=== PATIENT | female | born 1985 | race Caucasian/White ===

== ENCOUNTER → 2017-06-23 | Outpatient (CLI) | payer BC ==
[~2017-06-23] MED LIST: DFL150 PO; IBUP-1050 PO; NYST100098 TD; PRENTAB26 PO; [UNRECOGNIZED DRUG - REMARK]
[2017-06-23 10:52] LABS: BASO % 0.2 %; BASO ABS # 0.02 K/uL (0-0.2); COMPLETE YES; EOS % 2.2 %; HEMATOCRIT 42.5 % (37-47); IG% 0.1 %; LYMPH % 23.7 %; LYMPH ABS # 2.33 K/uL (1.2-3.4); MEAN CELL VOLUME 95.7 fL (80-100); MEAN CORPUSCULAR HEMOGLOBIN 32.4 pg (25-34); MEAN CORPUSCULAR HGB CONC 33.9 g/dl (32-36); MEAN PLATELET VOLUME 10.8 fL (7.4-10.4); MONO % 5.6 %; NEUT % 68.2 %; PLATELET COUNT 257 K/uL (130-400); RED BLOOD COUNT 4.44 M/uL (4.2-5.4); WHITE BLOOD COUNT 9.84 K/uL (4.8-10.8)
[2017-06-23 11:24] LABS: BLOOD UREA NITROGEN 15 mg/dl (7-18); BUN/CREATININE RATIO 15.9 (10-20); CALCIUM 9.6 mg/dl (8.5-10.1); CARBON DIOXIDE 30 mmol/L (21-32); CHLORIDE 104 mmol/L (98-107); CHOLESTEROL 184 mg/dl (0-200); CREATININE 0.95 mg/dl (0.60-1.20); GLUCOSE 93 mg/dl (70-99); POTASSIUM 4.4 mmol/L (3.5-5.1); SODIUM 139 mmol/L (136-145)
[2017-06-23 11:33] LABS: ALB/GLOB RATIO 1.1 (0.9-2); ALKALINE PHOSPHATASE 61 U/L (45-117); ALT/SGPT 13 U/L (12-78); AST/SGOT 10 U/L (15-37); CHOLESTEROL/HDL RATIO 3.1; HDL CHOLESTEROL 60 mg/dl; LDL CHOLESTEROL CALCULATED 105 mg/dl; THYROID STIMULATING HORMONE 0.913 uIu/ml (0.300-4.500); TRIGLYCERIDES 95 mg/dl (0-150); VERY LOW DENSITY LIPOPROT CALC 19 mg/dl
== END | disposition home or self-care (01) ==
LOC: C.LABBC 08:59
PROVIDERS: ATTEND Physician Assistant Medical
DX: Z80.8 Family history of malignant neoplasm of other organs or systems (principal); E78.5 Hyperlipidemia, unspecified

== ENCOUNTER → 2017-10-31 | Outpatient (CLI) | payer BC | END | disposition home or self-care (01) | LOC: C.PAPS 13:51 | PROVIDERS: ATTEND Physician Assistant | DX: Z01.419 Encounter for gynecological examination (general) (routine) without abnormal findings (principal) ==

== ENCOUNTER → 2017-10-31 | Outpatient (CLI) | payer BC | END | disposition home or self-care (01) | LOC: C.LABSPEC 13:38 | PROVIDERS: ATTEND Physician Assistant | DX: N92.6 Irregular menstruation, unspecified (principal) ==

== ENCOUNTER 2021-08-08 12:40 | Inpatient (IN) ==
[2021-08-08] MEDS ORDERED: OXYTOCIN 30 UNITS/500 ML BAG IV PRN ×3 (13:32→18:27)
[2021-08-08] MEDS ORDERED: LACTATED RINGER'S 1,000 ML IV PRN (13:32)
--- NOTE | 2021-08-08 13:35 | History & Physical Report ---
Date of Service August 08, 2021 Assessment & Plan (1) with 36 completed weeks gestation: (2) PROM (premature rupture of membranes): Plan: fetus category one, gbs negative. Patient was tested 3 days ago for covid and negative, retesting today. Offered short expectant management vs starting pit now. Wants to expectantly manage for now. Told her likely no more than 6 hours. She is agreeable. epidural on demand. anticipate . History of Present Illness Chief Complaint: rom Primary Care Provider: Stew Hernandez MD Patient is a 35yowf at 36 6/7 weeks who presents to labor and delivery complaining of large gush of fluid at noon, clear. no bleeding, no contractions. +fm. Lost mucous plug yesterday. New FOB. Last delivery 10 years ago. and Delivery Plans Abnormal fluid & ventricles on brain on f/u anatomy *MFM consult. MRI Jun 15 (normal MRI of fetus) Vaping daily AMA Weekly NST's @ 36 weeks Thyroid nodule Cervical polyp x 2. Having bleeding in ASCUS, HPV negative pap-repeat 1 year OB Labs: Blood Type A Positive 01/21/21 Antibody Screen NEGATIVE 01/21/21 Hemoglobin 10.9 g/dL (12.0-16.0) L 06/11/21 Hematocrit 33.3 % (37-47) L 06/11/21 Mean Corpuscular Volume 95.7 fL (80-100) 06/23/17 Platelet Count 257 K/uL (130-400) 06/23/17 Rubella IgG AntibodyD Immune (Immune) 01/21/21 Rapid Plasma Reagin Nonreactive (Nonreactive) 01/21/21 Hepatitis B Surface Antigen Neg (Neg) 01/21/21 HIV (1&2) Ab and P24 Ag, 4th Gener Neg (Neg) 01/21/21 Glucose 1 Hour 50 gm Load 180 mg/dl (70-130) H 06/11/21 OB Optional Labs: Chlamydia trachomatis RNA NOT DETECTED (NOT DETECTED) 01/21/21 Neisseria gonorrhoeae RNA NOT DETECTED (NOT DETECTED) 01/21/21 Thyroid Stimulating Hormone (TSH) 0.913 uIu/ml (0.300-4.500) 06/23/17 Labs Reviewed: 01/19/2021 Hgb13.5 Hct40.1 MCV91.3 [id number] Allergies Allergy/AdvReac Type Severity Reaction Status Date / Time No Known Allergies Allergy Mild Verified 08/02/21 09:51 Home Medications Medication Instructions Recorded Confirmed Type prenat.vits,jennifer,mxi-ssuf-vepmg 1 tab PO DAILY 08/01/21 08/08/21 History Patient History Medical History History of chicken pox Low grade squamous intraepithelial lesion (LGSIL) Thyroid nodule Benign biopsy Surgical History History of colposcopy History of tonsillectomy Age 22 Family History Father Myocardial infarction Diabetes Brother Thyroid cancer Mother Parathyroid cancer Hypertension Colonic polyp Kidney failure Sister Thyroid cancer Denies family history of Ovarian cancer Prostate cancer Breast cancer Colorectal cancer Social History Smoking Status: Current every day smoker Tobacco Type: E-cigarettes / Vaping Age Started Using Tobacco: 16; packs per day: 0.5; Cigarettes Per Day: 4; Second Hand Exposure: No; Hx Alcohol Use: No Hx Substance Use: No Preferred Language: Egyptian Communication Ability: Effective Electronic Console Display Operator Required: No Beliefs That Will Affect Care: None marital status: marital status details: derian Shen, [phone] Current Living Situation: Family Current Living Situation Comment: lives with son, no pets current occupational status: employed current occupation: [employer]. Other Information That Helps Us Care for You: No Feels Safe at Home: Yes Safety Concerns: Feels Safe At This Time Childhood Exposure to Second-Hand Smoke: No caffeine: Yes Physical Activity Frequency: Does not Exercise Seatbelt Use: always Sunscreen Use: No Assistive Devices: None OB History Past Pregnancies Del. Date GA wks Lbr Lgth wt Sex Type del Anes Place Del Prov ? Comment 01/20/10 39 8 5-10 M Epid ural [facility] Dr. Pierce No oligohydramnios Physical Exam Constitutional: WD/WN, vitals as above Cardiovascular: Extremities: no calf tenderness and no edema Gastrointestinal (Abdomen): soft, gravid, nt Psychiatric: A+Ox3, euthymic affect Genitourinary: sse--+gross pooling sve--3-4/80/-2 EFM--130s with mod variability, accels to 150s, no decels toco--chari Results & Data ([facility]) Vital Signs (Past 12 Hours) Vital Signs Temp Pulse Resp BP 08/08/21 12:59 36.6 C 96 H 20 121/74 08/08/21 12:57 96 H 121/74 Coding Level of Care Code None Diagnoses with 36 completed weeks gestation Z3A.36 PROM (premature rupture of membranes) O42.90
[2021-08-08 14:04] LABS: Hematocrit (blood only) 37.8 % (37-47); Hemoglobin 12.9 g/dL (12.0-16.0); Mean Corpuscular Hemoglobin 30.6 pg (25-34); Mean Corpuscular Hgb Conc 34.1 g/dL (32-36); Mean Corpuscular Volume 89.8 fL (80-100); Mean Platelet Volume 10.6 fL (7.4-10.4); Platelet Count 218 K/uL (130-400); RDW Coefficient of Variation 12.5 % (11.5-14.5); RDW Standard Deviation 40.5 fL (36.4-46.3); Red Blood Count 4.21 M/uL (4.2-5.4); White Blood Count 10.72 K/uL (4.8-10.8)
[2021-08-08] MEDS ORDERED: ePHEDrine sulfate 50 MG/ML AMP ONE (17:42)
[2021-08-08] MEDS ORDERED: SODIUM CHLORIDE 0.9% INJ 10 ML VIAL ONE (17:42)
[2021-08-08] MEDS ORDERED: BUPIVACAINE 0.25% 30 ML VIAL ONE (17:42)
[2021-08-08] MEDS ORDERED: fentaNYL citrate 100 MCG/2 ML VIAL ONE (17:42)
[2021-08-08] MEDS ORDERED: fentaNYL 2MCG/ML ROPIVACAINE 1.25MG/ML 100 ML BAG EPI ONE (17:43)
[2021-08-08] MEDS ORDERED: LIDOCAINE 1% LOCAL 20 ML VIAL ONE (18:17)
[2021-08-08] MEDS ORDERED: ACETAMINOPHEN 325 MG TAB PO PRN (18:27)
[2021-08-08] MEDS ORDERED: oxyCODONE/ACETAMINOPHEN 5mg/325mg TAB PO PRN (18:27)
[2021-08-08] MEDS ORDERED: HYDROCORTISONE ACETATE 25 MG SUPP PR PRN (18:27)
[2021-08-08] MEDS ORDERED: DIPHTHERIA/TETANUS/PERTUSSIS 0.5 ML SYR/VIAL IM ONE (18:27)
[2021-08-08] MEDS ORDERED: BENZOCAINE 20% AER SPR 82.5 GM CAN EXT PRN (18:27)
[2021-08-08] MEDS ORDERED: SUPERCREAM 0.870% 15 GM JAR EXT PRN (18:27)
[2021-08-08] MEDS ORDERED: bisacodyL 10 MG SUPP PR PRN (18:27)
--- NOTE | 2021-08-08 18:31 | Delivery Summary ---
Vaginal Delivery Summary Date of Service August 08, 2021 Vaginal Delivery Summary and 2nd Degree LAC Pre-operative Diagnosis: at 36 6/7 prom Post-operative Diagnosis: same Procedure: pitocin augmentation second degree laceration and repair EBL: 300cc Anesthesia: local 1% lidocaine to perineum Procedure: The patient presented to labor and delivery with prom. We started pitocin after about 5 hours of expectant management. She quickly progressed to c/c/+2. The patient pushed for 2 contractions to deliver a viable male in eric position. The shoulders and the rest of the was then delivered without difficulty. The baby was vigorous. The nose and mouth were bulb suctioned and the infant was placed in the maternal abdomen for drying and attention. Cord was clamped and cut at one minute of life. Cord blood and segment obtained. Placenta delivered spontaneous, intact with a three vessel cord. Cervix/sulci/rectum were intact. A second degree perineal laceration was repaired in the normal standard fashion. Hemostasis obtained with dilute pitocin and fundal massage. Apgars were 8/9. Mother and baby doing well at the end of the delivery. [facility] [place] Vaginal Delivery Charge Delivery Type Details: and 2nd Degree LAC
[2021-08-08] MEDS: IBUPROFEN 600 MG TAB PO PRN ×2 (19:11→23:46)
[2021-08-08] MEDS: DOCUSATE SODIUM 100 MG CAP PO SCH (23:25)
--- NOTE | 2021-08-09 06:29 | Obstetrical Progress Note ---
Date of Service <Amelie York MD - Last Filed: 08/09/21 06:46> August 09, 2021 Assessment & Plan <Amelie York MD - Last Filed: 08/09/21 06:46> (1) Encounter for care and examination after delivery: PPD 1: stable, routine management * patient voiding and ambulating without difficulty * pain well controlled on analgesia * tolerating regular diet * bottle feeding * anticipate d/c today in the afternoon or tomorrow * 6-week OB outpatient follow-up <Evelyn Shepherd MD, FACOG - Last Filed: 08/09/21 07:49> (1) Encounter for care and examination after delivery: Subjective <Amelie York MD - Last Filed: 08/09/21 06:46> Toya is a 35-year-old who is now PPD 1 following spontaneous vaginal de livery at 36.6 weeks. Reports feeling well overall this morning. "Not much" abdominal cramping & 2/10 pain well managed on Motrin that she received at midnight. Voiding +. Tolerating meals well and able to ambulate without difficulty. Is passing gas, denies bowel movements. Some persistent lochia with some improvement this morning. Bottle feeding. Review of Systems Denies fever, chills, sweats Denies shortness of breath, difficulty breathing, chest pain, palpitations, chest pressure. Denies breast pain. Denies dysuria. Denies headache or changes in vision Physical Exam <Amelie York MD - Last Filed: 08/09/21 06:46> General: Alert, oriented. No acute distress. Cardiac: Regular rate and rhythm, no murmurs/rubs/gallops. Respiratory: Clear to auscultation bilaterally a/p, no wheezes/rales/rhonchi. No increased work of breathing. Symmetrical chest rise. No respiratory distress. Abdomen: Soft, nontender, nondistended. Bowel sounds present. Uterus: Uterine fundus firm, palpable 1 cm below umbilicus. Lower Extremities: No lower extremity edema or swelling. No deep calf pain. Guy's negative bilaterally.. Results & Data ([facility]) <Amelie York MD - Last Filed: 08/09/21 06:46> Vital Signs (Past 12 Hours) Vital Signs Temp Pulse Pulse Resp BP BP Pulse Ox 08/09/21 03:05 36.5 C 68 16 112/72 98 08/09/21 00:10 36.5 C 73 16 118/71 98 08/08/21 20:50 36.4 C L 79 18 124/80 08/08/21 20:35 18 08/08/21 20:24 90 112/60 08/08/21 20:09 76 112/61 08/08/21 19:55 18 08/08/21 19:54 83 112/58 L 08/08/21 19:39 93 H 107/61 08/08/21 19:25 18 08/08/21 19:24 95 H 121/62 08/08/21 19:10 36.7 C 88 18 120/62 08/08/21 19:03 36.7 C 18 08/08/21 18:55 89 107/58 L 08/08/21 18:39 88 113/58 L <Evelyn Shepherd MD, FACOG - Last Filed: 08/09/21 07:49> Co-Signing Physician Notes Resident Physician Supervision Note: I interviewed and examined the patient. Discussed with Dr. York and agree with findings and plan as documented in the note. Any exceptions or clarifica tions are listed here: Doing well. Continue routine care. Bottle feeding. Documented By: Evelyn Shepherd MD, FACOG Resident Activity Tracking <Amelie York MD - Last Filed: 08/09/21 06:46> Resident Involvement: Resident Care Provided Care Provided: OB Delivery
[2021-08-09 07:22] LABS: Hematocrit (blood only) 33.5 % (37-47); Hemoglobin 11.3 g/dL (12.0-16.0)
[2021-08-09] MEDS: PRENATAL VITAMIN 1 TAB PO SCH (07:44)
[2021-08-09] MEDS: IBUPROFEN 600 MG TAB PO PRN ×2 (07:44→19:04)
[2021-08-09] MEDS: DOCUSATE SODIUM 100 MG CAP PO SCH ×2 (07:44→21:56)
[2021-08-09] MEDS ORDERED: bisacodyL 5 MG TABEC PO SCH (20:00)
--- NOTE | 2021-08-10 06:40 | Obstetrical Progress Note ---
Date of Service <Amelie York MD - Last Filed: 08/10/21 07:40> August 10, 2021 Assessment & Plan <Amelie York MD - Last Filed: 08/10/21 07:40> (1) Encounter for care and examination after delivery: PPD 2: stable, routine management * patient voiding and ambulating without difficulty * pain well controlled on analgesia * tolerating regular diet * bottle feeding * anticipate d/c today * 6-week OB outpatient follow-up <Ysabel Cabrera DO - Last Filed: 08/10/21 07:52> (1) Encounter for care and examination after delivery: Subjective <Amelie York MD - Last Filed: 08/10/21 07:40> Toya is a 35-year-old who is now PPD 2 following spontaneous vaginal delivery at 36.6 weeks. Reports feeling well overall this morning. Improved abdominal cramping & 1/10 pain well managed on analgesics. Voiding without difficulty. Tolerating meals well and able to ambulate some. Is passing gas but [] bowel movements. Improvement with lochia this morning. Bottle feeding. Review of Systems Denies fever, chills, sweats Denies shortness of breath, difficulty breathing, chest pain, palpitations, souleymane st pressure. Denies breast pain. Denies dysuria. Denies headache or changes in vision <Ysabel Cabrera DO - Last Filed: 08/10/21 07:52> Toya is a 35-year-old who is now PPD 2 following spontaneous vaginal delivery at 36.6 weeks. Reports feeling well overall this morning. Improved abdominal cramping & 1/10 pain well managed on analgesics. Voiding without difficulty. Tolerating meals well and able to ambulate some. Is passing gas but no bowel movements. Improvement with lochia this morning. Bottle feeding. Review of Systems Denies fever, chills, sweats Denies shortness of breath, difficulty breathing, chest pain, palpitations, chest pressure. Denies breast pain. Denies dysuria. Denies headache or changes in vision Physical Exam <Amelie York MD - Last Filed: 08/10/21 07:40> General: Alert, oriented. No acute distress. Cardiac: Regular rate and rhythm, no murmurs/rubs/gallops. Respiratory: Clear to auscultation bilaterally a/p, no wheezes/rales/rhonchi. No increased work of breathing. Symmetrical chest rise. No respiratory distress. Abdomen: Soft, nontender, nondistended. Bowel sounds present. Uterus: Uterine fundus firm, palpable 1 cm below umbilicus. Lower Extremities: No lower extremity edema or swelling. No deep calf pain. Guy's negative bilaterally.. Results & Data ([facility]) <Amelie York MD - Last Filed: 08/10/21 07:40> Vital Signs (Past 12 Hours) Vital Signs Temp Pulse Resp BP Pulse Ox 08/09/21 23:30 36.8 C 71 18 103/64 98 08/09/21 19:30 36.7 C 85 18 118/73 98 <Ysabel Cabrera DO - Last Filed: 08/10/21 07:52> Co-Signing Physician Notes Resident Physician Supervision Note: I was present with Dr. York during the history and exam. I discussed the case with the resident and agree with the findings and plan as documented in the note. Any exceptions or clarifications are listed here: PPD#2 doing well, plans for DC home. Reviewed DC instructions. Followup in office 6w. Documented By: Ysabel Cabrera DO Resident Activity Tracking <Amelie York MD - Last Filed: 08/10/21 07:40> Resident Involvement: Resident Care Provided Care Provided: OB Delivery
[2021-08-10] MEDS: PRENATAL VITAMIN 1 TAB PO SCH (07:08)
[2021-08-10] MEDS: DOCUSATE SODIUM 100 MG CAP PO SCH (07:08)
[2021-08-10] MEDS: IBUPROFEN 600 MG TAB PO PRN (07:09)
== END 2021-08-10 11:10 | disposition home or self-care (01) | DRG 807 ==
LOC: 4S1 12:40 → OPB 12:40 → 4S1 13:33 → 4S2 20:45